=== PATIENT | female | born 1950 | race Caucasian/White ===

== ENCOUNTER 2018-07-25 11:01 | Emergency (ER) | payer OTHER, MEDICARE ==
[2016-12-16 08:42] VITALS: Wt 76.4 kg
[~2018-07-25 11:01] MED LIST: ACE325 PO; ACE325S PR; ADV250/50 INH; ALBU8.5H12 IH; ALBUTERAL INHALER; AUG875 PO; AZIT-1 PO; AZIT-18 PO; AZIT500T47 PO; BACDS PO; BUDE10.2 IH; CEF300 PO; CETI-176 PO; COUGH SYRUP; CYC10 PO; DICL100G39 TOP; DM H PO; DUL100/5PT INH; FEXO-1 PO; FLUT16SP20 NS; GUAI600T57 PO; IBU600 PO; IBUP-1618 PO; IBUP800T37 PO; IPRA3AMP37 IH; LEV125 PO; LEV15R INH; LEVA INH; LEVA1.2527 IH; LEVO100T95 PO; LEVO50 PO; LID5T TP; LOR5 PO; LOR5/325 PO; LORA-798 PO; MELO-149 PO; MELO-150 PO; METH4TAB57 PO; MONT10TA PO; MOX400 PO; MULT-820 PO; NICOTINE PATCH1 EACH TD; OND4 PO; OXYC-373 PO; OXYC-865 PO; OXYC-869 PO; OXYC1TAB54 PO; OXYC20TA99 PO; OXYGEN INH; PER PO; PRE20 PO; PRED-1 PO; PRED-314 PO; PRED20TA6 PO; PRO25 PO; ROBC PO; ROPI0.2527 PO; TIO18R INH; VARE1TAB18 PO; ZOLP-350 PO; [UNRECOGNIZED DRUG - CODE] BC; [UNRECOGNIZED DRUG - CODE] PO
--- NOTE | 2018-07-25 11:11 | ER Report ---
History and Physical Time Seen By MD: 11:11 [facility] CHIEF COMPLAINT: Shortness of breath HISTORY OF PRESENT ILLNESS: 68-year-old female patient presents to emergency room with complaint of shortness of breath. Patient states that she has been h aving this since Thursday. She states that she is also has some facial swelling and fatigue. She states takes been going on for quite some time. She denies any fevers or chills. Patient states she does take Percocet on a regular basis for a torn rotator cuff as well as back pain. Patient denies having any vomiting or diarrhea. Patient states that she does have some chest burning. She states that she has had some coughing. She states there is nothing seems to help her make this worse. REVIEW OF SYSTEMS: Respiratory: As noted above Cardiovascular: As noted above. Gastrointestinal: No vomiting, no abdominal pain. Musculoskeletal: No back pain. Allergies: Coded Allergies: moxifloxacin (Verified Allergy, Mild, HIVES, 02/14/17) hepatitis B virus vaccine (Verified Adverse Reaction, Intermediate, HIVES, 02/14/17) tramadol (Unverified Adverse Reaction, Intermediate, HALLUCINATIONS, 02/14/17) Home Meds Active Scripts Azithromycin 250 Mg Tab (AZITHROMYCIN 250 MG TAB) 250 Mg Tablet, 1 TAB PO QDAY, #6 TAB Take 2 tabs today and then 1 tab a day until gone. Prov:PIEDAD GIBBS 07/25/18 Prednisone (PREDNISONE) 20 Mg Tablet, 40 MG PO DAILY, #10 TAB Prov:PIEDAD GIBBS 07/25/18 Furosemide (LASIX) 20 Mg Tablet, 1 TAB PO DAILY, #5 TAB Prov:PIEDAD GIBBS 07/25/18 Tiotropium [place] (SPIRIVA) 18 Mcg/Cap Inh, 18 MCG INH DAILY, #30 INH Prov:KELLE VILLELA MD 12/20/16 Levothyroxine Sodium (LEVOTHYROXINE SODIUM) 0.125 Mg Tab, 0.125 MG PO QDAY@06, #30 TAB 1 Refill Prov:AMI RABAGO MD 07/25/15 Diclofenac Sodium 1% Gel (VOLTAREN 1% GEL) 100 Gm Gel..gram., 1 GM TOP Q12H PRN for PAIN, #1 TUBE 0 Refills Prov:NITESH KIRK MD 05/19/15 Reported Medications Oxycodone Hcl/Acetaminophen (PERCOCET 7.5-325 MG TABLET) 1 Each Tablet, 1 EACH PO Q4H, TAB 02/14/17 Levalbuterol Hcl (XOPENEX) 1.25 Mg/3 Ml Vial.neb, 1.25 MG IH Q4H PRN for SHORTNESS OF BREATH 12/16/16 Oxycodone Hcl (OXYCONTIN) 20 Mg Tab.er.12h, 30 MG PO HS, TAB 12/15/16 Mometasone/Formoterol (DULERA 100 MCG/5 MCG INHALER) 13 Gm Inh, 2 PUFF INH BID, INH 07/19/15 Ipratropium/Albuterol Sulfate (DUONEB 0.5 MG-3 MG/3 ML SOLN) 3 Ml Ampul.neb, 3 ML IH QID 05/22/13 Montelukast Sodium (SINGULAIR) 10 Mg Tablet, 1 TAB PO HS TAKE ONE TABLET BY MOUTH EVERY DAY AT BEDTIME 05/20/13 Zolpidem Tartrate (Ambien) 10 Mg Tablet, 10 MG PO QHS PRN TAKE AT BEDTIME NEEDED 09/07/11 Past Medical/Surgical History Patient has a past medical history of oxygen at night, asthma, pulmonary embolism, COPD, IBS, bursitis, arthritis, fractures of both wrists, right rib, chronic back pain, hypothyroidism. Patient has a surgical history of back surgery, neck fusion, hysterectomy. Patient has a family medical history of cancer, diabetes. Reviewed Nurses Notes: Yes Hx Smoking: Yes Smoking Status: Former Smoker Hx Substance Use Disorder: No Hx Alcohol Use: No Constitutional Vital Sign - Last 24 Hours 07/25/18 07/25/18 07/25/18 07/25/18 11:06 11:16 11:30 12:00 Temp 97.9 Pulse 80 64 60 Resp 16 20 14 B/P (MAP) 125/63 108/51 (70) 103/59 (74) Pulse Ox 83 90 92 O2 Delivery Room Air O2 Flow Rate 3.0 07/25/18 07/25/18 12:30 13:00 Pulse 64 70 Resp 14 9 B/P (MAP) 95/55 (68) 101/64 (76) Pulse Ox 92 90 Physical Exam General Appearance: The patient is alert, has no immediate need for airway protection and no current signs of toxicity. Respiratory: Chest is non tender, lungs are coarse in the left lower lobe to auscultation. Cardiac: regular rate and rhythm Gastrointestinal: Abdomen is soft and non tender, no masses, bowel sounds normal. Musculoskeletal: Neck: Neck is supple and non tender. Extremities have full range of motion and are non tender. Skin: No rashes or lesions. DIFFERENTIAL DIAGNOSIS: After history and physical exam differential diagnosis was considered for shortness of breath including but not limited to pulmonary infectious process, COPD, asthma, pulmonary embolus and congestive heart failure. Medical Decision Making Data Points Result Diagram: 07/25/18 1222 07/25/18 1131 Laboratory Hematology Test 07/25/18 11:25 07/25/18 11:31 07/25/18 12:22 Urine Color Straw Urine Clarity Clear Urine pH 7.0 pH (4.8-9.5) Urine Specific [place] 1.005 Urine Protein Negative mg/dL (NEGATIVE) Urine Glucose (UA) Negative mg/dL (NEGATIVE) Urine Ketones Negative mg/dL (NEGATIVE) Urine Blood Negative (NEGATIVE) Urine Nitrite Negative (NEGATIVE) Urine Bilirubin Negative (NEGATIVE) Urine Urobilinogen Negative mg/dL (0.2-1.9) Urine Leukocyte Esterase Small (NEGATIVE) Urine RBC None /HPF (0-2/HPF) Urine WBC 3 /HPF (0-5/HPF) Urine Squamous Epithelial Cells None /LPF (</=FEW) Urine Bacteria Negative /HPF (NONE-FEW) Urine Hyaline Casts Few /LPF (NONE-FEW) Urine Mucus None /HPF (NONE-FEW) Sodium Level 141 mmol/L (137-145) Potassium Level 4.1 mmol/L (3.5-5.0) Chloride Level 107 mmol/L (98-107) Carbon Dioxide Level 23 mmol/L (22-31) Blood Urea Nitrogen 14 mg/dl (7-18) Creatinine 0.70 mg/dl (0.52-1.04) Glomerular Filtration Rate Calc > 60.0 Random Glucose 123 mg/dl (75-110) Calcium Level 9.8 mg/dl (8.4-10.2) Total Bilirubin 0.5 mg/dl (0.2-1.3) Aspartate Amino Transf (AST/SGOT) 24 U/L (0-35) Alanine Aminotransferase (ALT/SGPT) 24 U/L (0-56) Alkaline Phosphatase 56 U/L (0-126) Troponin I < 0.012 ng/ml B-Type Natriuretic Peptide 175 pg/ml (0-100) Total Protein 7.2 g/dl (6.3-8.2) Albumin 4.2 g/dl (3.5-5.0) Red Blood Count 5.03 M/uL (4.17-5.56) Mean Corpuscular Volume 92.5 fL (80.0-96.0) Mean Corpuscular Hemoglobin 30.9 pg (26.0-33.0) Mean Corpuscular Hemoglobin Concent 33.4 g/dL (32.0-36.0) Red Cell Distribution Width 12.9 % (11.5-14.5) Mean Platelet Volume 9.7 fL (7.2-11.1) Neutrophils (%) (Auto) 86.4 % (39.4-72.5) Lymphocytes (%) (Auto) 10.9 % (17.6-49.6) Monocytes (%) (Auto) 1.7 % (4.1-12.4) Eosinophils (%) (Auto) 0.3 % (0.4-6.7) Basophils (%) (Auto) 0.7 % (0.3-1.4) Nucleated RBC Relative Count (auto) 0.0 /100WBC Neutrophils # (Auto) 7.5 K/uL (2.0-7.4) Lymphocytes # (Auto) 0.9 K/uL (1.3-3.6) Monocytes # (Auto) 0.1 K/uL (0.3-1.0) Eosinophils # (Auto) 0.0 K/uL (0.0-0.5) Basophils # (Auto) 0.1 K/uL (0.0-0.1) Nucleated RBC Absolute Count (auto) 0.00 K/uL Chemistry Test 07/25/18 11:25 07/25/18 11:31 07/25/18 12:22 Urine Color Straw Urine Clarity Clear Urine pH 7.0 pH (4.8-9.5) Urine Specific [place] 1.005 Urine Protein Negative mg/dL (NEGATIVE) Urine Glucose (UA) Negative mg/dL (NEGATIVE) Urine Ketones Negative mg/dL (NEGATIVE) Urine Blood Negative (NEGATIVE) Urine Nitrite Negative (NEGATIVE) Urine Bilirubin Negative (NEGATIVE) Urine Urobilinogen Negative mg/dL (0.2-1.9) Urine Leukocyte Esterase Small (NEGATIVE) Urine RBC None /HPF (0-2/HPF) Urine WBC 3 /HPF (0-5/HPF) Urine Squamous Epithelial Cells None /LPF (</=FEW) Urine Bacteria Negative /HPF (NONE-FEW) Urine Hyaline Casts Few /LPF (NONE-FEW) Urine Mucus None /HPF (NONE-FEW) Glomerular Filtration Rate Calc > 60.0 Calcium Level 9.8 mg/dl (8.4-10.2) Total Bilirubin 0.5 mg/dl (0.2-1.3) Aspartate Amino Transf (AST/SGOT) 24 U/L (0-35) Alanine Aminotransferase (ALT/SGPT) 24 U/L (0-56) Alkaline Phosphatase 56 U/L (0-126) Troponin I < 0.012 ng/ml B-Type Natriuretic Peptide 175 pg/ml (0-100) Total Protein 7.2 g/dl (6.3-8.2) Albumin 4.2 g/dl (3.5-5.0) White Blood Count 8.7 k/uL (4.5-11.0) Red Blood Count 5.03 M/uL (4.17-5.56) Hemoglobin 15.5 g/dL (12.0-16.0) Hematocrit 46.5 % (34.0-47.0) Mean Corpuscular Volume 92.5 fL (80.0-96.0) Mean Corpuscular Hemoglobin 30.9 pg (26.0-33.0) Mean Corpuscular Hemoglobin Concent 33.4 g/dL (32.0-36.0) Red Cell Distribution Width 12.9 % (11.5-14.5) Platelet Count 230 K/uL (150-450) Mean Platelet Volume 9.7 fL (7.2-11.1) Neutrophils (%) (Auto) 86.4 % (39.4-72.5) Lymphocytes (%) (Auto) 10.9 % (17.6-49.6) Monocytes (%) (Auto) 1.7 % (4.1-12.4) Eosinophils (%) (Auto) 0.3 % (0.4-6.7) Basophils (%) (Auto) 0.7 % (0.3-1.4) Nucleated RBC Relative Count (auto) 0.0 /100WBC Neutrophils # (Auto) 7.5 K/uL (2.0-7.4) Lymphocytes # (Auto) 0.9 K/uL (1.3-3.6) Monocytes # (Auto) 0.1 K/uL (0.3-1.0) Eosinophils # (Auto) 0.0 K/uL (0.0-0.5) Basophils # (Auto) 0.1 K/uL (0.0-0.1) Nucleated RBC Absolute Count (auto) 0.00 K/uL Urinalysis Test 07/25/18 11:25 Urine Color Straw Urine Clarity Clear Urine pH 7.0 pH (4.8-9.5) Urine Specific [place] 1.005 Urine Protein Negative mg/dL (NEGATIVE) Urine Glucose (UA) Negative mg/dL (NEGATIVE) Urine Ketones Negative mg/dL (NEGATIVE) Urine Blood Negative (NEGATIVE) Urine Nitrite Negative (NEGATIVE) Urine Bilirubin Negative (NEGATIVE) Urine Urobilinogen Negative mg/dL (0.2-1.9) Urine Leukocyte Esterase Small (NEGATIVE) Urine RBC None /HPF (0-2/HPF) Urine WBC 3 /HPF (0-5/HPF) Urine Squamous Epithelial Cells None /LPF (</=FEW) Urine Bacteria Negative /HPF (NONE-FEW) Urine Hyaline Casts Few /LPF (NONE-FEW) Urine Mucus None /HPF (NONE-FEW) EKG/Imaging EKG Interpretation 12 lead EKG: Rhythm: normal sinus rhythm [place]: normal QRS: normal ST segments: normal Imaging Technique: CHEST PA AND LAT HISTORY: RESP DISTRESS Comparison studies: Chest radiographs 12/15/2016, CT chest 12/15/2016 FINDINGS: No acute airspace consolidation. There remains left basilar scarring. Pulmonary hyperexpansion is present. There are scattered interstitial lung markings. The cardiomediastinal silhouette is unchanged. Lower cervical spinal fusion hardware is again identified. IMPRESSION: 1. No acute cardiopulmonary process. 2. Chronic findings as described above. Report Dictated By: Yohan Alberto DO at 07/25/2018 12:26 PM Report E-Signed By: Yohan Alberto DO at 07/25/2018 12:28 PM ED Course/Re-evaluation ED Course Patient was admitted exam room, history and physical were obtained. Differential diagnoses were considered. On examination lungs were slightly coarse in the left lower lobe, abdomen soft nontender, heart rate was regular. An EKG, chest x-ray, troponin, a BNP, CBC and CMP were done. Chest x-ray was negative, EKG showed a normal sinus rhythm, troponin was negative, BNP was elevated 170, last time she had her BNP checked denies able to see on her medical record was in 2014. At that time it was in the 30s and 40s. CBC had a little bit of a left shift, however there is no elevated white count. CMP was unremarkable. I discussed the findings with the patient. I believe that we are looking at a COPD exacerbation as she is feeling so short of breath, she feels much better when she sits up. However she also has the elevated BMP. I feel that we should go ahead and treat her with prednisone, Lasix and azithromycin. Discussed the patient verbalized understanding and agreement. We will go ahead and discharge her home this time. She is to follow-up with her primary care provider in the next week. Patient verbalized understanding and agreement with plan. Decision to Disposition Date: Jul 25, 2018 Decision to Disposition Time: 13:07 Depart Departure Latest Vital Signs Vital Signs Date Time Temp Pulse Resp B/P (MAP) Pulse Ox O2 Delivery O2 Flow Rate FiO2 07/25/18 13:00 70 9 101/64 (76) 90 07/25/18 11:16 3.0 07/25/18 11:06 97.9 Room Air Impression: Primary Impression: COPD exacerbation Additional Impression: Elevated brain natriuretic peptide (BNP) level Condition: Improved Disposition: HOME OR SELF-CARE Referrals: JEREMIAH BYERS (PCP) New Scripts Azithromycin 250 Mg Tab (AZITHROMYCIN 250 MG TAB) 250 Mg Tablet 1 TAB PO QDAY, #6 TAB Take 2 tabs today and then 1 tab a day until gone. Prov: PIEDAD GIBBS 07/25/18 Prednisone (PREDNISONE) 20 Mg Tablet 40 MG PO DAILY, #10 TAB Prov: PIEDAD GIBBS 07/25/18 Furosemide (LASIX) 20 Mg Tablet 1 TAB PO DAILY, #5 TAB Prov: PIEDAD GIBBS 07/25/18 Patient Instructions: COPD (Chronic Obstructive Pulmonary Disease) (ED) Additional Instructions: Continue with normal diet. Get plenty of rest. We will culture the urine and see if there is anything grows out. Take medication as prescribed. Follow up with your primary care provider in the next week. Return to the ER if condition worsens. Problem Qualifiers PIEDAD GIBBS Jul 25, 2018 11:11
--- NOTE | 2018-07-25 12:15 | EKG ---
FACILITY: [facility] - [place] PATIENT NAME: MADELIN TOBAR : [id number] MR: [id number] V: [id number] EXAM DATE: ORDERING PHYSICIAN: PIEDAD GIBBS TECHNOLOGIST: ROMULO Blackburn Reason : CHEST DICOMFORT Blood Pressure : / mmHG Vent. Rate : 075 BPM Atrial Rate : 075 BPM P-R Int : 138 ms QRS Dur : 066 ms QT Int : 376 ms P-R-T Axes : 078 -07 056 degrees QTc Int : 419 ms Sinus rhythm Possible right atrial enlargement Left axis When compared with ECG of 14-FEB-2017 06:27, No significant change was found Confirmed by AMI RABAGO ([id number]) on 07/25/2018 3:46:56 PM Referred By: ZIGGY Confirmed By:AMI RABAGO
[2018-07-25 12:27] LABS: PLATELET COUNT, AUTOMATED 230 K/uL (150-450)
--- NOTE | 2018-07-25 12:32 | RADIOLOGY IMAGING REPORT ---
FACILITY: [facility] - [place] PATIENT NAME: Rosario Phillip : 1950 MR: [id number] V: [id number] EXAM DATE: ORDERING PHYSICIAN: PIEDAD GIBBS TECHNOLOGIST: Location: [facility] - [place] Patient: Rosario Phillip : 1950 Visit/Account:[id number] Date of Sevice: 07/25/2018 Technique: CHEST PA AND LAT HISTORY: RESP DISTRESS Comparison studies: Chest radiographs 12/15/2016, CT chest 12/15/2016 FINDINGS: No acute airspace consolidation. There remains left basilar scarring. Pulmonary hyperexpans ion is present. There are scattered interstitial lung markings. The cardiomediastinal silhouette is u nchanged. Lower cervical spinal fusion hardware is again identified. IMPRESSION: 1. No acute cardiopulmonary process. 2. Chronic findings as described above. Report Dictated By: Yohan Alberto DO at 07/25/2018 12:26 PM Report E-Signed By: Yohan Alberto DO at 07/25/2018 12:28 PM WSN:[id number]
[2018-07-25 13:00] VITALS: BP 101/64
[2018-07-25] MEDS ORDERED: FURO20TA19 PO (13:06)
[2018-07-25] MEDS ORDERED: PRED20TA6 PO (13:06)
[2018-07-25] MEDS ORDERED: AZIT-18 PO (13:06)
[2018-07-25] MEDS ORDERED: methylPREDNIS SUCC 125 MG/2ML IVP ONE (13:10)
== END 2018-07-25 13:22 | disposition home or self-care (01) ==
LOC: ER 11:22
DX: J44.1 Chronic obstructive pulmonary disease with (acute) exacerbation (principal); R79.89 Other specified abnormal findings of blood chemistry
CPT/HCPCS: 36415; 71046; 81001; 83880; 84484; 85025; 87088; 93005; 96374; 99284; J2930; 82040; 82247; 82310; 82374; 82435; 82565; 82947; 84075; 84132; 84155; 84295; 84450; 84460; 84520

== ENCOUNTER → 2018-08-06 | Outpatient (CLI) | payer OTHER, MEDICARE ==
[2016-12-16 08:42] VITALS: BMI 26.3
[~2018-08-06] MED LIST changes: +FURO20TA19 PO
[2018-08-06 11:04] LABS: LDL CHOLESTEROL 100 mg/dl
== END ==
LOC: US 03:53
PROVIDERS: ATTEND Nurse Practitioner Psychiatric/Mental Health
DX: I07.1 Rheumatic tricuspid insufficiency (principal); R06.9 Unspecified abnormalities of breathing; E03.9 Hypothyroidism, unspecified; E78.5 Hyperlipidemia, unspecified; Z77.29 Contact with and (suspected) exposure to other hazardous substances
CPT/HCPCS: 36415; 82040; 82247; 82310; 82374; 82435; 82465; 82565; 82947; 83718; 84075; 84132; 84155; 84295; 84439; 84443; 84450; 84460; 84478; 84480; 84520; 86803; 93306